=== PATIENT | female | born 1995 | race Caucasian/White ===

== ENCOUNTER 2016-11-23 16:45 | Emergency (ER) | payer SELFPAY ==
[~2016-11-23] VITALS: Ht 157.5 cm; Wt 78.9 kg
[~2016-11-23 16:45] MED LIST: PREN1TAB79 PO
[2016-11-23 17:08] VITALS: Ht 157.5 cm; Wt 78.9 kg
== END 2016-11-23 19:40 | disposition left against medical advice (07) ==
LOC: FTE 16:45
DX: Z53.21 Procedure and treatment not carried out due to patient leaving prior to being seen by health care provider (principal)